=== PATIENT | female | born 1995 ===

== ENCOUNTER 2016-07-18 14:53 | Emergency (ER) | payer OTHER ==
[2016-07-18] VITALS (12 sets, daily range): BP systolic 95–141; BP diastolic 65–94; PULSE 61–81; TEMP 36.6–36.9; O2SAT 95–100; Ht 157.5 cm; Wt 70.5 kg
[~2016-07-18] VITALS: Ht 157.5 cm; Wt 70.5 kg
[2016-07-18] MEDS ORDERED: MoRPHine SULFATE 10 MG/ML CARP/VIAL IV STA (15:20)
[2016-07-18] MEDS ORDERED: ONDANSETRON INJ 2 MG/ML 2 ML VIAL IV STA (15:20)
[2016-07-18 15:37] LABS: BASO % 0.2 %; BASO ABS # 0.03 K/uL (0-0.2); COMPLETE YES; EOS % 0.4 %; HEMATOCRIT 39.6 % (37-47); IG% 0.3 %; LYMPH % 9.4 %; MEAN CORPUSCULAR HEMOGLOBIN 30.9 pg (25-34); MEAN CORPUSCULAR HGB CONC 34.3 g/dl (32-36); MEAN PLATELET VOLUME 9.4 fL (7.4-10.4); MONO % 3.1 %; NEUT % 86.6 %; PLATELET COUNT 294 K/uL (130-400); WHITE BLOOD COUNT 13.83 K/uL (4.8-10.8)
[2016-07-18 15:46] LABS: PARTIAL THROMBOPLASTIN RATIO 0.9; PROTHROMBIN TIME (PATIENT) 10.8 SECONDS (9.0-12.0)
[2016-07-18 15:55] LABS: BUN/CREATININE RATIO 20.8 (10-20)
--- NOTE | 2016-07-18 16:02 | DIAGNOSTIC IMAGING REPORT ---
AP PELVIS AND LEFT HIP 3 VIEWS CLINICAL HISTORY: Hip pain status post trauma COMPARISON STUDY: No previous studies for comparison. FINDINGS: There is a superior lateral dislocation of the left hip. There is no symphysis diastases. There is mild age-indeterminate irregularity of the right symphysis pubis. No femoral neck fractures are visualized. IMPRESSION: 1. Left hip dislocation 2. Age-indeterminate irregularity of the right symphysis pubis Electronically signed by: Alvin Fernando M.D. 07/18/2016 4:00 PM Dictated Date/Time: 07/18/2016 3:58 PM
[2016-07-18] MEDS ORDERED: PROPOFOL IV EMULSION 10 MG/ML 20 ML VIAL IV ONE (16:04)
[2016-07-18] MEDS ORDERED: HYDROmorphone INJ 1 MG/ML SYR ONE (16:09)
--- NOTE | 2016-07-18 16:37 | DIAGNOSTIC IMAGING REPORT ---
AP PELVIS AND LEFT HIP 2 VIEWS CLINICAL HISTORY: Left hip dislocation. Post reduction films. COMPARISON STUDY: Earlier in the day FINDINGS: There is been interval reduction of the previously described dislocation. No fractures are visualized. IMPRESSION: Interval reduction of the previous described left hip dislocation Electronically signed by: Alvin Fernando M.D. 07/18/2016 4:34 PM Dictated Date/Time: 07/18/2016 4:33 PM
[2016-07-18 16:44] LABS: PREG INTERNAL NEGATIVE QC NEG CLEAR BACKGROUND; PREG INTERNAL POSITIVE QC POS CONTROL LINE
--- NOTE | 2016-07-18 16:45 | EMERGENCY ROOM VISIT NOTE ---
ED Visit Note First contact with patient: 16:02 Procedural Sedation Indication: Left Hip Dislocation reduction. Last Ate: 6+ hours ago Previous issues with sedation: none Allergies: denies any allergies Snore: denies Emergent: Yes ASA: 1 Mallampati: 1 Dentures/loose teeth: none Time Out: 16:03 Time Recovered: 16:26 Total time: 20 min. Written consent was obtained after the risks and benefits were explained to the patient (with friends present), including, but not limited to aspiration, allergic reaction, breathing difficulties, cardiac complications, vomiting, pain , event recall, bleeding, and/or infection. Pre-sedation examination and paperwork completed. The patient was on 100% oxygen via NRB prior to the procedure. Continuos end tidal CO2 monitoring, pulse oximetry, and cardiac monitoring were utilized. Suction, airway equipment, medications, respiratory equipment, and appropriate personnel were prepared prior to the initiation of the procedure. A time out was taken. Sedation was achieved utilizing a total of 160 mg of propofol in small boluses. After I observed the patient had reached the appropriate level of sedation the main procedure was performed without complication. Sedation was discontinued and the monitoring continued. The patient recovered quickly from the effects of the medication without complication or adverse event.
--- NOTE | 2016-07-18 16:55 | Medical Consult ---
Consultation Date of Consultation: Jul 18, 2016. Attending Physician: Reason for Consultation: L hip dislocation. 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 Brought to ER vis ambulance. She denies any other injuries. 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 Allergies Coded Allergies: No Known Allergies (Unverified , 07/18/16) Review of Systems Constitutional: No chills, No fever, No problem reported, No sweats, No weakness, No weight loss Eyes: No diplopia, No discharge, No eye pain, No problem reported, No redness, No worsening of vision ENT: No dental problems, No hearing loss, No nasal symptoms, No problem reported, No sore throat, No tinnitus, No trouble swallowing, No unusual epistaxis Respiratory: No cough, No dyspnea at rest, No dyspnea on exertion, No hemoptysis, No problem reported, No shortness of breath, No sputum, No wheezing Cardiovascular: No PND, No chest pain, No claudication, No edema, No orthopnea , No palpitations, No problem reported Abdomen: No GI bleeding, No constipation, No diarrhea, No nausea, No pain, No problem reported, No vomiting Musculoskeletal: + joint pain (L hip) Neurologic: No balance problems, No memory loss, No numbness/tingling, No paralysis, No problem reported, No vertigo, No weakness Integumentary: No bleeding, No color change, No itch, No new/changing skin lesions, No problem reported, No rash Physical Exam Date Time Temp Pulse Resp B/P Pulse Ox O2 Delivery O2 Flow Rate FiO2 07/18/16 16:25 74 15 114/76 96 Nasal Cannula 2.0 07/18/16 16:20 81 15 114/65 98 Nasal Cannula 2.0 07/18/16 16:15 71 07/18/16 16:15 61 15 95/66 98 Room Air 2.0 07/18/16 16:10 73 18 124/91 99 Room Air 2.0 07/18/16 16:05 70 18 116/86 99 Room Air 2.0 07/18/16 16:00 36.9 78 18 141/94 100 Room Air 07/18/16 15:02 70 141/94 100 Room Air General Appearance: WD/WN, + pertinent finding (obvious discomfort) Extremities/Musculoskelatal: + pertinent finding (limited ROM L hip, held in flexed position. +TTP groin and SI joint. 2+ DP pulse. Sensation to LT intact. Able to wiggle her toes and ankle up & down.) Laboratory Results Last 24 Hours Test 07/18/16 15:25 07/18/16 16:31 White Blood Count 13.83 K/uL Red Blood Count 4.40 M/uL Hemoglobin 13.6 g/dL Hematocrit 39.6 % Mean Corpuscular Volume 90.0 fL Mean Corpuscular Hemoglobin 30.9 pg Mean Corpuscular Hemoglobin Concent 34.3 g/dl Platelet Count 294 K/uL Mean Platelet Volume 9.4 fL Neutrophils (%) (Auto) 86.6 % Lymphocytes (%) (Auto) 9.4 % Monocytes (%) (Auto) 3.1 % Eosinophils (%) (Auto) 0.4 % Basophils (%) (Auto) 0.2 % Neutrophils # (Auto) 11.97 K/uL Lymphocytes # (Auto) 1.30 K/uL Monocytes # (Auto) 0.43 K/uL Eosinophils # (Auto) 0.06 K/uL Basophils # (Auto) 0.03 K/uL RDW Standard Deviation 40.3 fL RDW Coefficient of Variation 12.3 % Immature Granulocyte % (Auto) 0.3 % Immature Granulocyte # (Auto) 0.04 K/uL Prothrombin Time 10.8 SECONDS Prothromb Time International Ratio 1.0 Activated Partial Thromboplast Time 24.0 SECONDS Partial Thromboplastin Ratio 0.9 Sodium Level 139 mmol/L Potassium Level 4.0 mmol/L Chloride Level 105 mmol/L Carbon Dioxide Level 27 mmol/L Anion Gap 7.0 mmol/L Blood Urea Nitrogen 21 mg/dl Creatinine 1.00 mg/dl Est Creatinine Clear Calc Drug Dose 81.2 ml/min Estimated GFR () 92.6 Estimated GFR (Non- 79.9 BUN/Creatinine Ratio 20.8 Random Glucose 96 mg/dl Calcium Level 9.0 mg/dl Assessment & Plan RADIOGRAPHS: AP PELVIS AND AP & lateral L hip shows a posterior hip dislocation with a very small non-displaced acetabular fracture versus calcification of the labrum. Irregular appearance of the L SI joint. Old appearing irregularity of the right pubic symphysis along the articular surface. IMPRESSION: L Hip posterior dislocation, concern for SI injury. PLAN: Discussed with patient need for conscious sedation and Closed reduction left hip and agreed. After obtaining consent, preforming a time-out identifying the left hip for closed reduction, and after appropriate conscious sedation a closed reduction was performed in the standard fashion with the pelvis held in place, traction flexion, adduction with lateral traction, the hip reduced and was stable to ROM after. Following the reduction her pain was significantly improved. - TTP in the pubic symphysis, + TTP groin and L SI joint. Post reduction films showed a reduced L hip, still some concern regarding the L SI joint. A CT scan was obtained showed reduced L hip with very small posterior acetabular non-displaced fracture. SI joint and femur intact. Pt will be placed in a knee immobilizer, given crutches and will be TTWB. She will be given pain medicine, but will transition to NSAIDs and Tylenol. Follow up with Dr. Stout in the Training room next week. She was also given hip precautions to follow.
--- NOTE | 2016-07-18 16:58 | DIAGNOSTIC IMAGING REPORT ---
CT PELVIS NO IV/ORAL CONT (CT) CT DOSE: 577.33 mGy.cm CLINICAL HISTORY: Left hip dislocation.] Injury. Pain. TECHNIQUE: Helical images were acquired in the transverse plane. Sagittal and coronal reformatted images were acquired. COMPARISON STUDY: Conventional radiographic study performed the same day FINDINGS: There is no evidence of SI joint diastases. There is a 2 x 4 mm chip fracture arising from the posterior lateral acetabulum. This demonstrates less than 4 mm of maximal distraction. There is trace gas within the left hip joint capsule. No fracture of the left femur visualized. No pubic or ischio pubic ring fractures are visualized. There is no hip dislocation. IMPRESSION: 1. Tiny 2 x 4 mm chip fracture arising from the posterior lateral left acetabulum 2. No fractures of the proximal left femur are visualized. There is no dislocation. Electronically signed by: Alvin Fernando M.D. 07/18/2016 4:56 PM Dictated Date/Time: 07/18/2016 4:50 PM
[2016-07-18] MEDS ORDERED: HYDR-5688 PO (17:16)
--- NOTE | 2016-07-18 17:17 | EMERGENCY ROOM VISIT NOTE ---
History First contact with patient: 15:12 Chief Complaint: HIP PAIN Stated Complaint: HIP INJURY History of Present Illness The patient is a 21 year old female who presents to the Emergency Room the ambulance with complaints of left hip injury. 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 She is now unable to bear weight and has extreme pain in her left hip. The patient denies any prior dislocation of the hip. The patient denies any knee or ankle pain. The patient denies any back pain or any numbness and tingling in her lower extremities. The patient last ate at 10:30 AM. The patient is accompanied by an market development trainer from [facility]. He states that Dr. Stout is on his way to evaluate and treat this patient. Review of Systems 10 system review was performed and was negative unless stated otherwise history of present illness. Social History Smoking Status: Never Smoker Current/Historical Medications No Active Prescriptions or Reported Meds Allergies Coded Allergies: No Known Allergies (Unverified , 07/18/16) Physical Exam Vital Signs Date Time Temp Pulse Resp B/P Pulse Ox O2 Delivery O2 Flow Rate FiO2 07/18/16 16:56 36.7 66 18 110/82 95 Room Air 68 07/18/16 16:45 68 18 114/76 95 Room Air 68 07/18/16 16:30 36.6 62 13 114/76 97 Room Air 63 07/18/16 16:26 36.6 62 11 114/76 97 Nasal Cannula 07/18/16 16:25 74 15 114/76 96 Nasal Cannula 2.0 07/18/16 16:20 81 15 114/65 98 Nasal Cannula 2.0 07/18/16 16:15 71 07/18/16 16:15 61 15 95/66 98 Room Air 2.0 07/18/16 16:10 73 18 124/91 99 Room Air 2.0 07/18/16 16:05 70 18 116/86 99 Room Air 2.0 07/18/16 16:00 36.9 78 18 141/94 100 Room Air 07/18/16 15:02 70 141/94 100 Room Air Physical Exam GENERAL: 21-year-old white female appears uncomfortable secondary to pain. MENTAL Status: Alert and oriented 3. LUNGS: Clear auscultation without wheezes rales or rhonchi. CARDIAC: Regular rate and rhythm without murmur. Pulses is full and equal throughout. LEFT HIP: No gross bony deformity noted. No erythema or edema noted. The patient has tenderness palpation over the lateral aspect of the hip joint. Did not assess range of motion secondary to pain. LEFT KNEE: No bony deformity noted. Nontender to palpation. LEFT ANKLE: No bony deformity noted. No erythema or edema noted. Full range of motion. Pedal pulses 2+. Sensation is intact throughout. Medical Decision & Procedures ER Provider Diagnostic Interpretation: AP PELVIS AND LEFT HIP 3 VIEWS CLINICAL HISTORY: Hip pain status post trauma COMPARISON STUDY: No previous studies for comparison. FINDINGS: There is a superior lateral dislocation of the left hip. There is no symphysis diastases. There is mild age-indeterminate irregularity of the right symphysis pubis. No femoral neck fractures are visualized. IMPRESSION: 1. Left hip dislocation 2. Age-indeterminate irregularity of the right symphysis pubis Electronically signed by: Alvin Fernando M.D. 07/18/2016 4:00 PM AP PELVIS AND LEFT HIP 2 VIEWS CLINICAL HISTORY: Left hip dislocation. Post reduction films. COMPARISON STUDY: Earlier in the day FINDINGS: There is been interval reduction of the previously described dislocation. No fractures are visualized. IMPRESSION: Interval reduction of the previous described left hip dislocation Electronically signed by: Alvin Fernando M.D. 07/18/2016 4:[address] PELVIS NO IV/ORAL CONT (CT) CT DOSE: 577.33 mGy.cm CLINICAL HISTORY: Left hip dislocation.] Injury. Pain. TECHNIQUE: Helical images were acquired in the transverse plane. Sagittal and coronal reformatted images were acquired. COMPARISON STUDY: Conventional radiographic study performed the same day FINDINGS: There is no evidence of SI joint diastases. There is a 2 x 4 mm chip fracture arising from the posterior lateral acetabulum. This demonstrates less than 4 mm of maximal distraction. There is trace gas within the left hip joint capsule. No fracture of the left femur visualized. No pubic or ischio pubic ring fractures are visualized. There is no hip dislocation. IMPRESSION: 1. Tiny 2 x 4 mm chip fracture arising from the posterior lateral left acetabulum 2. No fractures of the proximal left femur are visualized. There is no dislocation. Laboratory Results 07/18/16 15:25 Red Blood Count 4.40, Mean Corpuscular Volume 90.0, Mean Corpuscular Hemoglobin 30.9, Mean Corpuscular Hemoglobin Concent 34.3, Mean Platelet Volume 9.4, Neutrophils (%) (Auto) 86.6, Lymphocytes (%) (Auto) 9.4, Monocytes (%) (Auto) 3.1, Eosinophils (%) (Auto) 0.4, Basophils (%) (Auto) 0.2, Neutrophils # (Auto) 11.97, Lymphocytes # (Auto) 1.30, Monocytes # (Auto) 0.43, Eosinophils # (Auto) 0.06, Basophils # (Auto) 0.03 07/18/16 15:25 Test 07/18/16 15:25 White Blood Count 13.83 K/uL (4.8-10.8) Red Blood Count 4.40 M/uL (4.2-5.4) Hemoglobin 13.6 g/dL (12.0-16.0) Hematocrit 39.6 % (37-47) Mean Corpuscular Volume 90.0 fL (80-100) Mean Corpuscular Hemoglobin 30.9 pg (25-34) Mean Corpuscular Hemoglobin Concent 34.3 g/dl (32-36) Platelet Count 294 K/uL (130-400) Mean Platelet Volume 9.4 fL (7.4-10.4) Neutrophils (%) (Auto) 86.6 % Lymphocytes (%) (Auto) 9.4 % Monocytes (%) (Auto) 3.1 % Eosinophils (%) (Auto) 0.4 % Basophils (%) (Auto) 0.2 % Neutrophils # (Auto) 11.97 K/uL (1.4-6.5) Lymphocytes # (Auto) 1.30 K/uL (1.2-3.4) Monocytes # (Auto) 0.43 K/uL (0.11-0.59) Eosinophils # (Auto) 0.06 K/uL (0-0.5) Basophils # (Auto) 0.03 K/uL (0-0.2) RDW Standard Deviation 40.3 fL (36.4-46.3) RDW Coefficient of Variation 12.3 % (11.5-14.5) Immature Granulocyte % (Auto) 0.3 % Immature Granulocyte # (Auto) 0.04 K/uL (0.00-0.02) Prothrombin Time 10.8 SECONDS (9.0-12.0) Prothromb Time International Ratio 1.0 (0.9-1.1) Activated Partial Thromboplast Time 24.0 SECONDS (21.0-31.0) Partial Thromboplastin Ratio 0.9 Anion Gap 7.0 mmol/L (3-11) Est Creatinine Clear Calc Drug Dose 81.2 ml/min Estimated GFR () 92.6 Estimated GFR (Non- 79.9 BUN/Creatinine Ratio 20.8 (10-20) Calcium Level 9.0 mg/dl (8.5-10.1) Human Chorionic Gonadotropin, Qual NEG (NEG) Medications Administered Medications (Trade) Dose Ordered Sig/W[place]emar Route Start Time Stop Time Status Last Admin Dose Admin Morphine Sulfate (MoRPHine SULFATE INJ) 8 mg NOW STAT IV 07/18/16 15:20 07/18/16 15:23 DC 07/18/16 15:27 8 MG Ondansetron HCl (Zofran Inj) 4 mg NOW STAT IV 07/18/16 15:20 07/18/16 15:23 DC 07/18/16 15:27 4 MG Hydromorphone HCl (Dilaudid Inj) 1 mg STK-MED ONCE .ROUTE 07/18/16 16:09 07/18/16 16:10 DC 07/18/16 16:09 1 MG ED Course The patient was evaluated. Left hip x-ray was ordered and interpreted by the radiologist as above with left hip dislocation.. IV access was obtained. CBC and differential and renal profile and coags were ordered. The patient was given morphine 8 mg IV and Zofran 4 mg IV push for associated nausea. Labs are reviewed and were unremarkable. Please see Dr. Stout's note for reduction and Dr. Thomas's note for conscious sedation. Postreduction x-ray of the left hip was ordered and interpreted by the radiologist with complete reduction of the dislocation. Dr. Stout requested a CT of the hip. CT of the hip revealed a small chip fracture of the acetabulum. The patient was informed of all findings. The patient was placed in a knee immobilizer and given crutches. The patient was discharged home in stable condition Medical Decision Differential diagnosis include hip fracture versus dislocation Impression Primary Impression: Hip dislocation, left Departure Information Dispostion Home / Self-Care Condition GOOD Prescriptions Hydrocodone/Acetaminophen 5MG/325MG (Coolidge 5MG/325MG) Tab 1-2 TABLET PO Q6 Y for Pain, #20 TAB For Initial Treatment Prov: Rupa Sanches PA-C 07/18/16 Referrals No Doctor, Assigned (PCP) Dk Stout MD Forms HOME CARE DOCUMENTATION FORM, IMPORTANT VISIT INFORMATION, WORK / SCHOOL INSTRUCTIONS Patient Instructions My [employer] Additional Instructions Ibuprofen 600 mg every 6 hours with food for pain. Take Coolidge as needed for more severe pain. Do not drive while taking the Coolidge. Wear knee immobilizer except for bathing until reevaluated by Dr. Stout. Use crutches for ambulation with only lightly touching your left toe to the ground for stabilization. Keep scheduled appointment with Dr. Stout for follow-up. Problem Qualifiers Primary Impression: Hip dislocation, left Encounter type: initial encounter Qualified Codes: S73.005A - Unspecified dislocation of left hip, initial encounter
--- NOTE | 2016-07-18 17:29 | [facility] Operative Report ---
Operative Report Operative Date Jul 18, 2016. Pre-Operative Diagnosis L hip dislocation Post-Operative Diagnosis Same Procedure(s) Performed Closed reduction left hip dislocation. Surgeon Dr. Stout Data Systems Manager Surgeon(s) Dr. Horvath Estimated Blood Loss 0 Findings Posterior left hip dislocation. 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 She was unable to bare weight and could not move her leg. Recommended closed reduction following conscious sedation. The risks and benefits were discussed, she wished to proceed and the informed consent was signed. Description of Procedure After appropriate conscious sedation was achieved, a time-out was preformed identifying the left leg ads the correct limb for the procedure. With counter traction applied to the pelvis and longitudinal traction, flexion, lateral/ abduction traction and adduction/IR the hip was reduced, initially part way and with second effort the hip was reduced with palpable and audible confirmation. Leg lengths were good, no pistoning, and stable ROM of the left hip was achieved. She tolerated the procedure well and had decreased pain afterward. I attest to the content of the Intraoperative Record and any orders documented therein. Any exceptions are noted below.
== END 2016-07-18 18:07 | disposition home or self-care (01) ==
LOC: EDBD 14:53 → C.EDB 14:55
DX: S73.005A Unspecified dislocation of left hip, initial encounter (principal); S32.402A Unspecified fracture of left acetabulum, initial encounter for closed fracture; W50.0XXA Accidental hit or strike by another person, initial encounter; Y92.328 Other athletic field as the place of occurrence of the external cause; Y93.63 Activity, rugby